=== PATIENT | male | born 1955 | race African-American/Black ===

== ENCOUNTER 2018-04-06 10:25 | Observation (INO) | payer OTHER ==
[2018-04-06] MEDS ORDERED: Nitroglycerin TAB 0.4 MG* 0.4 MG TAB ONE (14:16)
[2018-04-06 15:48] LABS: Hematocrit 46 % (42-52); Hemoglobin 15.5 g/dl (14.0-18.0); Mean Corpuscular HGB Conc 34 g/dl (31-36); Mean Corpuscular Hemoglobin 32 pg (27-31); Mean Corpuscular Volume 96 fL (80-94); Mean Platelet Volume 9.9 um3 (7.4-10.4); Platelet Count 143 10^3/ul (150-450); Red Blood Count 4.82 10^6/ul (4.00-5.40); Red Cell Distribution Width 13 % (10.5-15)
[2018-04-06 15:57] LABS: EGFR Non-African American 103.3 (>60)
[2018-04-06 16:02] LABS: INR 0.95 (0.77-1.02)
[2018-04-06 16:24] LABS: ABS Basophils 0 10^3/ul (0-0.2); ABS Eosinophils 0.1 10^3/ul (0-0.6); ABS Lymphocytes 1.3 10^3/ul (1.0-4.8); ABS Monocytes 0.6 10^3/ul (0-0.8); ABS Nucleated RBC 0 10^3/ul; Eosinophil % 0.6 % (0-6); Lymphocyte % 16.7 % (25-47); Nucleated Red Blood Cells % 0.1
[2018-04-06] MEDS ORDERED: NS 0.9% 500 ML* 500 ML IV ONE (16:33)
--- NOTE | 2018-04-06 16:40 | ED ---
Palpitations / Dysrhythmia - HPI Summary HPI Summary: This patient is a 62 year old M presenting to [facility] accompanied by his with a chief complaint of afib since 09 this morning. The patient rates the pain 1/10 in severity. Patient reports THORNE, palpitations, light headedness, and chest pressure. Patient denies LE pain and edema. Pt took 81 mg ASA this morning. States he can feel when he goes into afib and believes he is it currently. He reports that his last stress test was three years ago. Hx of HTN and afib - History of Current Complaint Chief Complaint: EDDysrhythmPalp Time Seen by Provider: 04/06/18 15:42 Hx Obtained From: Patient Onset/Duration: Lasting Hours, Still Present Timing: Constant Severity Initially: Moderate Severity Currently: Moderate Character: Irregular Associated Signs & Symptoms: Lightheadedness, Chest Pain - pressure Related History: Similar Episode/Dx as - afib - Allergy/Home Medications Allergies/Adverse Reactions: Allergies Allergy/AdvReac Type Severity Reaction Status Date / Time No Known Allergies Allergy Verified 04/06/18 10:30 PMH/Surg Hx/FS Hx/Imm Hx Endocrine/Hematology History: Comment Only: Hx Anticoagulant Therapy - aspirin Cardiovascular History: Reports: Hx Atrial Fibrillation, Hx Hypercholesterolemia , Hx Hypertension Respiratory History: Reports: Hx Sleep Apnea Musculoskeletal History: Reports: Hx Orthopedic Injury - (left) knee torn cartilage Sensory History: Reports: Hx Contacts or Glasses - glasses Opthamlomology History: Reports: Hx Contacts or Glasses - glasses - Surgical History Surgery Procedure, Year, and Place: (left) knee torn cartiledge, (as a child) Infectious Disease History: No Infectious Disease History: Denies: History Other Infectious Disease, Traveled Outside the [place] in Last 30 Days - Family History Known Family History: Negative: Cardiac Disease, Respiratory Disease, Seizure Disorder, Blood Disorder - Social History Lives: With Family Alcohol Use: Rare Substance Use Type: Reports: None Smoking Status (MU): Never Smoked Tobacco Review of Systems Negative: Fever, Chills Negative: Erythema Negative: Sore Throat Positive: Palpitations - described as afib , Chest Pain Positive: Shortness Of Breath - THORNE , Other. Negative: Cough Negative: Abdominal Pain, Vomiting, Nausea Negative: dysuria, hematuria Negative: Myalgia, Edema Neurological: Negative - dizziness , Other - light headedness All Other Systems Reviewed And Are Negative: Yes Physical Exam - Summary Physical Exam Summary: Constitutional: Well-developed, Well-nourished, Alert. (-) Distressed Skin: Warm, Dry HENT: Normocephalic; Atraumatic Eyes: Conjunctiva normal Neck: Musculoskeletal ROM normal neck. (-) JVD, (-) Stridor, (-) Tracheal deviation Cardio: irregular irregular rhythm, rate normal, Heart sounds normal; Intact distal pulses; The pedal pulses are 2+ and symmetric. Radial pulses are 2+ and symmetric. (-) Murmur Pulmonary/Chest wall: Effort normal. (-) Respiratory distress, (-) Wheezes, (-) Rales Abd: Soft, (-) epigastric tenderness, (-) Distension, (-) Guarding, (-) Rebound Musculoskeletal: (-) Edema Lymph: (-) Cervical adenopathy Neuro: Alert, Oriented x3 Psych: Mood and affect Normal Triage Information Reviewed: Yes Vital Signs On Initial Exam: Initial Vitals Temp Pulse Resp BP Pulse Ox 97.6 F 65 16 114/64 97 04/06/18 10:26 04/06/18 10:26 04/06/18 10:26 04/06/18 10:26 04/06/18 10:26 Vital Signs Reviewed: Yes Diagnostics - Vital Signs Vital Signs Temp Pulse Resp BP Pulse Ox 04/06/18 16:22 80 20 87/69 96 04/06/18 16:03 70 23 96/64 96 04/06/18 16:00 69 22 96 04/06/18 15:52 71 23 80/50 96 04/06/18 15:29 73 16 103/68 94 04/06/18 15:22 61 23 82/65 95 04/06/18 15:00 74 22 93 04/06/18 14:52 77 19 93/61 94 04/06/18 14:21 78 21 110/79 96 04/06/18 14:00 77 18 96 04/06/18 13:22 81 16 113/76 98 04/06/18 13:00 69 17 95 04/06/18 12:52 76 20 117/80 89 04/06/18 12:26 76 25 114/78 96 04/06/18 12:20 80 96 04/06/18 10:26 97.6 F 65 16 114/64 97 - Laboratory Lab Results: Lab Results 04/06/18 04/06/18 04/06/18 Range/Units 15:00 15:00 15:00 WBC 8.0 (3.5-10.8) 10^3/ul RBC 4.82 (4.00-5.40) 10^6/ul Hgb 15.5 (14.0-18.0) g/dl Hct 46 (42-52) % MCV 96 H (80-94) fL MCH 32 H (27-31) pg MCHC 34 (31-36) g/dl RDW 13 (10.5-15) % Plt Count 143 L (150-450) 10^3/ul MPV 9.9 (7.4-10.4) um3 Neut % (Auto) 74.6 (38-83) % Lymph % (Auto) 16.7 L (25-47) % Garza % (Auto) 7.7 H (0-7) % Eos % (Auto) 0.6 (0-6) % Baso % (Auto) 0.4 (0-2) % Absolute Neuts (auto) 6.0 (1.5-7.7) 10^3/ul Absolute Lymphs (auto) 1.3 (1.0-4.8) 10^3/ul Absolute Monos (auto) 0.6 (0-0.8) 10^3/ul Absolute Eos (auto) 0.1 (0-0.6) 10^3/ul Absolute Basos (auto) 0 (0-0.2) 10^3/ul Absolute Nucleated RBC 0 10^3/ul Nucleated RBC % 0.1 Sodium 140 (135-145) mmol/L Potassium 4.0 (3.5-5.0) mmol/L Chloride 108 (101-111) mmol/L Carbon Dioxide 25 (22-32) mmol/L Anion Gap 7 (2-11) mmol/L BUN 13 (6-24) mg/dL Creatinine 0.76 (0.67-1.17) mg/dL Est GFR ( Amer) 124.9 (>60) Est GFR (Non-Af Amer) 103.3 (>60) BUN/Creatinine Ratio 17.1 (8-20) Glucose 99 (70-100) mg/dL Calcium 9.4 (8.6-10.3) mg/dL Total Bilirubin 1.20 H (0.2-1.0) mg/dL AST 17 (13-39) U/L ALT 21 (7-52) U/L Alkaline Phosphatase 45 (34-104) U/L Troponin I 0.00 (<0.04) ng/mL B-Natriuretic Peptide 42 ( - 100) pg/mL Total Protein 6.8 (6.4-8.9) g/dL Albumin 4.1 (3.2-5.2) g/dL Globulin 2.7 (2-4) g/dL Albumin/Globulin Ratio 1.5 (1-3) Result Diagrams: 04/06/18 15:00 04/06/18 15:00 Lab Statement: Any lab studies that have been ordered have been reviewed, and results considered in the medical decision making process. Course/Dx - Course Assessment/Plan: this patient is a 62 year old M presenting to [facility] accompanied by his with a chief complaint of afib since 0910 this morning. The patient rates the pain 1/10 in severity. Patient reports THORNE, palpitations, light headedness, and chest pressure. Patient denies LE pain and edema. Pt took 81 mg ASA this morning. States he can feel when he goes into afib and believes he is it currently. He reports that his last stress test was three years ago. Hx of HTN and afib. An EKG reveals 83 BPM afib no stemi. Blood work obtained. The patients chest pain resolved with nitro. We discussed patient care with Dr. Cueto and he accepted the patient for admission. Patient will admitted. The patient is agreeable with this plan. - Diagnoses Provider Diagnoses: Chest pain, unspecified, Afib - Physician Notifications Discussed Care Of Patient With: Rajinder Cueto Time Discussed With Above Provider: 18:00 Instructed by Provider To: Admit As Inpatient Discharge - Sign-Out/Discharge Documenting (check all that apply): Patient Departure - admitted - Discharge Plan Condition: Fair Disposition: ADMITTED TO [facility] Referrals: Jose L Irwin MD [Primary Care Provider] - - Attestation Statements Document Initiated by Scribe: Yes Documenting Scribe: Arthur Virk Provider For Whom Scribe is Documenting (Include Credential): Guerrero Easton MD Scribe Attestation: IArthur , scribed for Guerrero Easton MD on 04/06/18 at 1830.
[2018-04-06] MEDS ORDERED: Albuterol 2.5 MG/3 ML NEB.SOL* (0.083%) INH PRN (17:27)
[2018-04-06] MEDS ORDERED: Acetaminophen TAB* 325 MG PO PRN (17:27)
[2018-04-06] MEDS ORDERED: Ondansetron INJ* 2 MG/ML VIAL IV PRN (17:27)
[2018-04-06] MEDS ORDERED: Al Hydrox/Mg Hydrox/Simet LIQ* 30 ML UDC PO PRN (17:27)
[2018-04-06] MEDS ORDERED: NS 0.9% 1000 ML* 1,000 ML IV SCH (17:30)
[2018-04-06] MEDS ORDERED: Finasteride TAB* 5 MG PO SCH (21:00)
[2018-04-06] MEDS ORDERED: Metoprolol Succinate XL TAB* 50 MG PO SCH (21:00)
[2018-04-06] MEDS: Tamsulosin CAP* 0.4 MG PO SCH (21:06)
[2018-04-06] MEDS: Apixaban* 5 MG TAB PO SCH (21:43)
[2018-04-06] MEDS ORDERED: Heparin VIAL(*) 5000 UNITS/ML VIAL (FIVE THOUSAND) SUBCUT SCH (22:00)
--- NOTE | 2018-04-06 22:39 | HP ---
CC: Dr. Jose L Irwin; Dr. Ogden * ADMISSION HISTORY AND PHYSICAL: DATE OF ADMISSION: 04/06/18 PATIENT OF ATTENDING HOSPITALIST: Dr. Rajinder Cueto.* (DICTATED BY ASHWIN MASON) PRIMARY CARE PHYSICIAN: Dr. Jose L Irwin. CHIEF COMPLAINT: Chest tightness, palpitation, and lightheadedness. HISTORY OF PRESENT ILLNESS: Mr. Hathaway is a 62-year-old gentleman with past medical history significant for chronic atrial fibrillation for which he had prior cardioversion who presented to the emergency room today with complaints of feeling some chest palpitation, chest tightness, lightheadedness as well as mild shortness of breath. The patient has prior admission with similar history in the past. He had seen Dr. Ogden regarding his atrial fibrillation and has been anticoagulated in the past using Xarelto, but currently on no anticoagulation medicine. He reports being in his usual state of health and this morning he had a gradual onset of intermittent palpitation, chest tightness with associated lightheadedness and mild shortness of breath. He denied any significant substernal chest pain, syncope, diaphoresis, nausea, or vomiting. He has been seen before in the hospital and had 2 occasions of RENETTA cardioversion, most recently 2 years ago. He was evaluated in the emergency room and had laboratory workup that revealed normal CBC and normal chemistry panel. His D-dimer was negative with value of 210. He denies any history of DVT or PE in the past. His EKG was repeated and compared to his records revealing atrial fibrillation with ventricular response ranging between 65 and 70. Given his ongoing symptoms, we were asked to see the patient for further evaluation and to consider admission to telemetry and cardiac consultation regarding possible cardioversion in the next day or 2. PAST MEDICAL HISTORY: As mentioned above significant for: 1. Essential hypertension. 2. Morbid obesity. 3. Obstructive sleep apnea. 4. Impaired fasting glycemia. 5. Hyperlipidemia. 6. Benign prostatic hyperplasia. 7. Atrial fibrillation. PAST SURGICAL HISTORY: Significant for right knee surgery for repair of cartilage tear. CURRENT MEDICATIONS: His medications at home include: 1. Aspirin 81 mg p.o. daily. 2. Digoxin 0.125 mg p.o. every other day alternating with digoxin 0.25 mg p.o. every other day. 3. Proscar 5 mg p.o. q.h.s. 4. Metoprolol succinate 50 mg p.o. q.h.s. 5. Aldactone 12.5 mg p.o. daily. 6. Flomax 0.4 mg p.o. b.i.d. ALLERGIES: He has no known drug allergies. FAMILY HISTORY: Significant for lung cancer in his father and diabetes in his mother. SOCIAL HISTORY: The patient is . He lives with family. He works as a musician. He has never smoked and he consumes alcohol occasionally. His lists his as the healthcare proxy carrier and he wishes to be a full code. REVIEW OF SYSTEMS: See HPI. Otherwise, 12 points review of systems were examined and they were essentially negative. PHYSICAL EXAMINATION GENERAL: He is a pleasant, upper middle-aged gentleman, obese, appears comfortable and in no acute distress or discomfort at the time of admission. VITAL SIGNS: Vitals revealed temperature of 97.6, pulse of 77, blood pressure of 111/81, respirations of 14 with O2 sat of 96% on room air. HEENT: Head is normocephalic, atraumatic. Sclerae are anicteric. PERRLA. EOMs intact. Oropharynx is pink and moist. NECK: Supple. Trachea midline. No cervical adenopathy, thyromegaly or JVD. LUNGS: Clear to auscultation bilaterally. HEART: Regular rate and rhythm. Normal S1 and S2 without rubs, murmurs, or gallops. BACK: With normal curvature. No CVA tenderness. ABDOMEN: Soft, nontender, and nondistended. There are no hernias, masses, or hepatosplenomegaly. RECTAL: Exam deferred at this time. EXTREMITIES: Without cyanosis, clubbing or edema. NEUROLOGIC: He is awake, alert, and oriented x4. Tongue is midline. Handgrip is equal bilaterally and sensation is intact throughout. LABORATORY WORKUP: CBC with white count of 8,000, hemoglobin 15.5, hematocrit 46, and platelets of 143. Chemistry panel with sodium of 140, potassium 4.0, chloride 108, CO2 25, BUN of 13, and creatinine of 0.7. His LFTs within normal limits and troponin was 0. BNP is 42. D-dimer was 210. INR is 0.95. ACCESSORY DIAGNOSTIC DATA: EKG again showed evidence of atrial fibrillation, unchanged compared to prior records and no evidence of ST changes. IMPRESSION: A 62-year-old gentleman with known history of paroxysmal atrial fibrillation, hypertension, and morbid obesity who presented to the emergency room with palpitation, chest tightness, and intermittent shortness of breath and will be admitted to telemetry unit for observation under hospitalist service for the following. ASSESSMENT AND PLAN: 1. Paroxysmal atrial fibrillation. The patient appears to be rate controlled at the time of admission. I will continue his digoxin at home dose alternating between 0.125 and 0.25 mg every other day. I had discussed the case with Dr. Ogden who is willing to see the patient tomorrow and recommended to keep him n.p.o. after midnight if any cardioversion is needed to be done. His chest pain has eventually resolved and his troponin is flat, but I will trend his troponin while he is here and repeat his EKG in the morning as well. 2. Hypertension. We will continue his spironolactone, metoprolol per home dose. 3. Benign prostatic hypertrophy. We will continue his Flomax at 0.4 mg once daily. 4. Morbid obesity. Supportive care. 5. Obstructive sleep apnea. The patient has been noncompliant with his CPAP in the past. I will review with him if he has been using it at home and will continue to use it to ensure adequate oxygenation at night. 6. Deep vein thrombosis prophylaxis. He is a high risk and will be covered with subcu heparin every 8 hours. 7. He wishes to be a full code. 8. Disposition. Admit to telemetry for observation, possible cardioversion in the morning and cardiac consultation. TIME SPENT: Approximately 60 minutes were spent admitting this patient for which greater than 50% on taking history and performing physical exam. I went on and discussed the case with my attending, who agreed to plan of care. ASHWIN MASON [id number]/CPS #: [id number] VANI
[2018-04-07 06:32] LABS: ABS Basophils 0 10^3/ul (0-0.2); ABS Eosinophils 0.1 10^3/ul (0-0.6); ABS Lymphocytes 1.4 10^3/ul (1.0-4.8); ABS Monocytes 0.6 10^3/ul (0-0.8); ABS Neutrophils 4.9 10^3/ul (1.5-7.7); ABS Nucleated RBC 0 10^3/ul; Eosinophil % 0.8 % (0-6); Hematocrit 46 % (42-52); Hemoglobin 15.3 g/dl (14.0-18.0); Lymphocyte % 20.5 % (25-47); Mean Corpuscular HGB Conc 34 g/dl (31-36); Mean Corpuscular Hemoglobin 32 pg (27-31); Mean Corpuscular Volume 96 fL (80-94); Mean Platelet Volume 10.3 um3 (7.4-10.4); Nucleated Red Blood Cells % 0; Platelet Count 134 10^3/ul (150-450); Red Blood Count 4.77 10^6/ul (4.00-5.40); Red Cell Distribution Width 14 % (10.5-15)
[2018-04-07 06:47] LABS: EGFR Non-African American 89.5 (>60)
--- NOTE | 2018-04-07 08:30 | PN ---
Subjective Date of Service: 04/07/18 Interval History: Mr. Hathaway denies complaint post RENETTA with cardioversion and is eager for discharge to home. Objective Active Medications: Acetaminophen (Tylenol Tab*) 975 mg PO Q4H PRN Al Hydrox/Mg Hydrox/Simethicone (Maalox Plus*) 30 ml PO Q6H PRN Albuterol (Ventolin 2.5 Mg/3 Ml Neb.Nya*) 2.5 mg INH [id number] AWAKE PRN Apixaban (Eliquis*) 5 mg PO BID CHRIS Aspirin (Aspirin Ec Tab*) 81 mg PO DAILY CHRIS Digoxin (Lanoxin Tab*) 0.125 mg PO EVERY OTHER DAY CHRIS Digoxin (Lanoxin Tab*) 0.25 mg PO EVERY OTHER DAY CHRIS Finasteride (Proscar Tab*) 5 mg PO BEDTIME CHRIS Metoprolol Succinate (Toprol Xl Tab*) 50 mg PO BEDTIME CHRIS Ondansetron HCl (Zofran Inj*) 4 mg IV Q4H PRN Spironolactone (Aldactone Tab*) 12.5 mg PO DAILY CHRIS Tamsulosin HCl (Flomax Cap*) 0.4 mg PO BID CHRIS Vital Signs: Temp Pulse Resp BP Pulse Ox 97.4 F 73 18 81/42 93 04/07/18 03:40 04/07/18 03:40 04/07/18 03:40 04/07/18 03:40 04/07/18 03:40 Oxygen Devices in Use Now: None Appearance: Male lying in bed in NAD Eyes: No Scleral Icterus Ears/Nose/Mouth/Throat: Mucous Membranes Moist Neck: Trachea Midline Respiratory: Symmetrical Chest Expansion and Respiratory Effort, Clear to Auscultation Cardiovascular: NL Sounds; No Murmurs; No JVD, No Edema Abdominal: NL Sounds; No Tenderness; No Distention Lymphatic: No Cervical Adenopathy Extremities: No Edema Skin: No Rash or Ulcers Neurological: Alert and Oriented x 3, NL Muscle Strength and Tone Nutrition: Taking PO's Result Diagrams: 04/07/18 05:49 04/07/18 05:49 Additional Lab and Data: . Assess/Plan/Problems-Billing Assessment: Mr. Hathaway is a 62 yo M with a PMH of paroxysmal afib with hx of cardioversions who was admitted on 04/06/18 with afib, symptomatic but bradycardic. - Patient Problems (1) Afib Comment: - Remains in afib with HR 40-70s, SBP 80s. - Plan for RENETTA cardioversion with Dr. Ogden, successful adventism of sinus rhythm.. - Continue digoxin, metoprolol and spironolactone. - Dr. Ogden recommends long-term anticoagulation with apixiban. (2) Hypertension Comment: - SBP 100s. - Resume home meds. (3) DVT prophylaxis Comment: - Apixiban. (4) Full code status Comment: Status and Disposition: OBV. Anticipate discharge to home when medically stable.
--- NOTE | 2018-04-07 08:30 | RAD ---
Indication: Shortness of breath. 2 views of the chest including dual energy PA views are reviewed and compared to previous exam dated February 01, 2016. There is an elevated left hemidiaphragm. Left basilar atelectasis is noted. Right lung field is clear. IMPRESSION: ELEVATED LEFT HEMIDIAPHRAGM WITH LEFT BASILAR ATELECTASIS. RIGHT LUNG FIELD IS CLEAR.
[2018-04-07] MEDS: Tamsulosin CAP* 0.4 MG PO SCH (08:54)
[2018-04-07] MEDS: Apixaban* 5 MG TAB PO SCH (08:56)
[2018-04-07] MEDS ORDERED: Aspirin EC TAB* 81 MG TAB.EC PO SCH (09:00)
[2018-04-07] MEDS ORDERED: Spironolactone TAB* 25 MG PO SCH (09:00)
[2018-04-07] MEDS ORDERED: Digoxin TAB* 0.25 MG PO SCH (09:00)
[2018-04-07] MEDS ORDERED: Naloxone* 0.4 MG/ML 1 ML VIAL ONE (14:37)
[2018-04-07] MEDS ORDERED: Lidocaine 2% VISCOUS* 15 ML UDC ONE (14:37)
[2018-04-07] MEDS ORDERED: fentaNYL* 50 MCG/ML 2 ML VIAL (100 MCG VIAL) ONE (14:37)
[2018-04-07] MEDS ORDERED: Flumazenil* 0.1 MG/ML 5 ML MDV ONE (14:37)
[2018-04-07] MEDS ORDERED: Midazolam* 1 MG/ML 10 ML VIAL (10 MG) ONE (14:37)
[2018-04-07] MEDS ORDERED: Magnesium Sulfate 1 GM IV* 1 GM/100 ML BAG IV ONE (16:00)
[2018-04-07 16:47] VITALS: BP 109/65
[2018-04-07] MEDS ORDERED: Potassium Chloride LIQUID* 20 MEQ PACKET PO ONE (17:30)
--- NOTE | 2018-04-07 20:09 | TEE ---
Patient: [facility] Rec#: [id number] : 1955 Date: 04/07/2018 Age: 62y Height: 172.7 cm / 68.0 in Weight: 109.8 kg / 242.0 lbs Sex: M BSA: 2.2 Room#: 440 Admit Date#: 04/06/2018 Type: Inpatient Referring: Jessi Jones NP Performing: Hasmukh Ogden MD Reading: Hasmukh Ogden MD Property Field Inspector: Jolie Quevedo RN RDCS Nurse: Kiara Argueta RN Nurse: Priyanka Patel Transesophageal Echocardiogram Indication: Atrial fibrillation BP: 132/84 HR: 79 Rhythm: A-Fib Findings History: Atrial fibrillation, prior cardioversions, HTN. Technical Comments: The study quality is good. Left Ventricle: The left ventricular chamber size is normal. Global left ventricular wall motion and contractility are within normal limits. There is normal left ventricular systolic function. The estimated ejection fraction is 60-65%. Left Atrium: The left atrial chamber size is normal. No thrombus is visualized within the left atrium. There is no thrombus visualized in the left atrial appendage. Right Ventricle: The right ventricular chamber size and systolic function are within normal limits. Right Atrium: The right atrial cavity size is normal. There is no patent foramen ovale visualized. A patent foramen ovale is not demonstrated by color Doppler. A bubble study was performed on a prior tranesophageal echo and it was negative. A bubble study is not repeated today. Aortic Valve: The aortic valve is trileaflet. The aortic valve leaflets are mildly thickened. There is no evidence of aortic regurgitation. There is no evidence of aortic stenosis. Mitral Valve: The mitral valve leaflets appear normal. There is a trace of mitral regurgitation. There is no evidence of mitral stenosis. Tricuspid Valve: The tricuspid valve leaflets are normal. There is trace tricuspid regurgitation. There is no tricuspid stenosis. Pulmonic Valve: The pulmonic valve appears normal. There is a trace pulmonic regurgitation. Pericardium: There is no significant pericardial effusion. Aorta: There is no dilatation of the ascending aorta. There is mild dilatation of the aortic root. There is mild atherosclerotic plaque seen in the aorta. Pulmonary Artery: The main pulmonary artery appears normal. Venous: The bicaval view was obtained and appears normal. The pulmonary veins appear normal. 3 of 4 veins were visualized. RENETTA Procedures: All standard views were attempted within the limitations of patient tolerance and safety. Transgastric imaging was attempted but was limited. History and physical as well as labs were reviewed. The patient was in a fasting state. Risks and benefits of the procedure, including alternatives, were discussed and written informed consent was obtained. The patient and/or their health care representative phlebotomy services expressed understanding of the procedure, risks and benefits. Baseline and continuous monitoring of blood pressure, heart rate, pulse oximetry and heart rhythm was performed throughout the procedure. The appropriate time-out procedure was performed as per [facility] protocol. The patient was placed in the left lateral decubitus position. The patient's posterior pharynx was anesthetized with 20ml of 2% viscous lidocaine. The patient received IV Midazolam with a total dose of 8 mg. The patient received IV Fentanyl with a total dose of 50 mcg. An oral bite block was inserted for protection of oral dentition. The multiplane transesophageal echocardiogram probe was inserted through the posterior oropharynx and advanced into the esophagus without difficulty. Multiple 2D images were obtained of the heart and its related structures. Color flow Doppler was used for evaluation. Spectral Doppler was also used. The atrial septum was interrogated with color flow Doppler. At the conclusion of the procedure the probe was removed with continuous suction without complications. The patient tolerated the procedure with no apparent complications. Conclusions The estimated ejection fraction is 60-65%. No thrombus is visualized within the left atrium. There is no thrombus visualized in the left atrial appendage. The aortic valve leaflets are mildly thickened. There is a trace of mitral regurgitation. There is trace tricuspid regurgitation. There is mild dilatation of the aortic root. There is mild atherosclerotic plaque seen in the aorta. Similar to 02/2013 except that the MR was mild then and there was trace AI. Measurements Name Value Normal Range Aortic Annulus 2.3 cm (1.4 - 2.6) Ao root diameter (2D) 3.8 cm (2.1 - 3.5) Ascending Ao 3 cm (2.1 - 3.4)
--- NOTE | 2018-04-07 23:15 | CONS ---
CC: Dr. Hasmukh Ogden; Dr. Irwin CARDIOLOGY CONSULTATION: DATE OF CONSULT: PATIENT OF: Dr. Hasmukh Ogden and Dr. Irwin. HISTORY OF PRESENT ILLNESS: This is very pleasant 62-year-old gentleman who has a history of paroxys mal atrial fibrillation dating back to his 20s who also has a history of hypertension, hyperlipidemia , sleep apnea, and obesity. He was in his usual state of jovanny until 09:10 a.m. yesterday, he develo ped sensation of lightheadedness, fatigue, and dyspnea typical of his AFib symptoms. He denied any c hest pains. Because of the symptoms, he called the office and was sent to the ER for evaluation. He was found to be in AFib with controlled ventricular response. He had low heart rate in the 40s and 5 0s overnight while asleep, which was asymptomatic, but is typically in the 60s and 70s at rest during the day. He denies any change in his constitutional symptoms. He has not had any caffeine or alcoh ol. He did start eating kimchi about 2 weeks and had some frequent bowel sounds associated with that . He denies any fevers, chills, sweats, orthopnea, peripheral edema. He does not exercise regularly , but is able to go for a short walk and stands on his feet all day at work at [employer]. 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 He has acquired thrombocytopenia. PAST MEDICAL HISTORY: Includes benign prostatic hypertrophy, hypertension, paroxysmal atrial fibrill ation since his 20s with multiple cardioversions, sleep apnea on CPAP, obesity. PAST SURGICAL HISTORY: He denies any surgeries. MEDICATIONS: Include: 1. Metoprolol succinate ER 50 mg once a day. 2. Tamsulosin 0.4 mg 2 tablets every day. 3. Digoxin 0.125 mg alternating with 2 tablets a day. 4. Tamsulosin 0.4 mg twice a day. 5. Spironolactone 12.5 mg a day. As an inpatient, he was started on Eliquis 5 mg b.i.d. ALLERGIES: He denies any allergies. FAMILY HISTORY: He has 2 sisters and a brother who are alive and well. SOCIAL HISTORY: He is , accompanied by his , [place]. 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 REVIEW OF SYSTEMS: Review of systems x10 was negative, except as above. PHYSICAL EXAMINATION: He is a well-developed, well-nourished, obese gentleman, in no apparent distre ss. Blood pressure 96/66 at noon with a heart rate of 60 and irregular, O2 sat 96% on room air. Atr aumatic, normocephalic. Extraocular muscles intact. Sclerae anicteric. Cardiac Exam: S1, S2, irre gular. No murmurs, gallops, or rubs. Chest was clear. No CVAT. Abdomen: Obese. Bowel sounds pre sent. Nontender. No hepatosplenomegaly. Femoral pulses intact without bruits. Distal pulse is inta ct with no edema. Motor strength 5/5 bilaterally. Deep tendon reflex is 2/4. Alert and oriented x3 . No edema. DIAGNOSTIC STUDIES/LABORATORY DATA: MCV elevated at 96, hematocrit of 46, platelet count of 134. D- dimer of 210. Potassium of 3.7 today, BUN of 13, creatinine of 0.86, magnesium of 1.8. Troponin 0.0 0 and 0.01. BNP normal at 42 and dig level is 1.3 today. EKG, 04/06/18, today revealed atrial fibrillation with controlled ventricular response and rSr patter n in V1. EKG from this morning at 07:38 revealed AFib with a slow ventricular response. EKG at 11:2 6 revealed AFib with a slow ventricular response in the 50s and right bundle-branch block as before. An EKG after cardioversion revealed a sinus rhythm with a right bundle-branch block. IMPRESSION: My impression is that Mr. Hathaway has a history of paroxysmal atrial fibrillation, sleep apnea, hypertension, obesity and now has a recurrent episode of atrial fibrillation after having 2 w eeks of GI upset possibly related to change in diet. We reviewed the risks and benefits of his situation, options of treatment. Given his symptoms despit e rate control, I do recommend an attempted cardioversion. Informed consent was obtained. He underwe nt a RENETTA-guided cardioversion. See separate report. In brief, the RENETTA revealed normal LV function, trace MR, and no evidence of intracardiac thrombus. He did have some mild atherosclerotic thickening of the aorta. PLAN: As follows: 1. He understands his options for treatment include continuing with periodic cardioversions as neede d or antiarrhythmic therapy or referral for EP study and ablation. 2. Given his relatively frequent symptoms and the possible relation to his GI discomfort, he would l may to continue with medications therapy at this point in time. 3. We will replace his magnesium and supplement his potassium. 4. He is to try to reduce his weight and exercise regularly. 5. Given he is approaching age 63 and has a history of hypertension, he will have a ZENOBIA score of 2 as of July. At this point, I do recommend anticoagulation agent chronically. He will begin Eliqu is and continue 5 mg twice a day. 6. He is to follow up in our office in 1 to 2 months time or sooner if symptoms develop. [id number]/[facility] #: [id number]
--- NOTE | 2018-04-08 02:48 | CARD ---
CARDIOLOGY PROCEDURE NOTE: DATE OF PROCEDURE: PROCEDURE: Cardioversion. INDICATIONS: This is a very pleasant 62-year-old gentleman with a longstanding history of paroxysma l atrial fibrillation. He was in his usual state of health until yesterday at 9:10 in the morning wh en he felt a little lightheaded and was aware of his typical AFib symptoms. He was also short of avinash ath at rest and with exertion. He denied any chest pain. He came to the emergency room and was foun d to be in AFib with a controlled ventricular response and he was started on anticoagulation. He rem ained in AFib. It was controlled with slow ventricular response overnight. Informed consent was obt ained. The patient was in a fasting state. A RENETTA was performed prior to the cardioversion to exclud e intracardiac thrombus. It revealed no evidence of left atrial or left atrial appendage thrombus. He had normal LV function. He received 8 mg of Versed and 50 mcg of fentanyl for the RENETTA portion. A single synchronized biphasic shock was then applied with successful conversion from AFib to sinus rh yt. 120 joules were applied. The findings were discussed with his at the patient's request. IMPRESSION: Successful conversion from atrial fibrillation to sinus rhythm. We will continue to monitor for recovery from monitored sedation. We will replace his magnesium, whi ch was mildly decreased at 1.8. We will supplement his potassium. Further recommendations depend on his clinical course. [id number]/[facility] #: [id number]
[2018-04-08] MEDS ORDERED: Digoxin TAB* 0.125 MG PO SCH (09:00)
--- NOTE | 2018-04-08 11:53 | DS ---
CC: Dr. Irwin; Dr. Ogden * HOSPITAL MEDICINE DISCHARGE SUMMARY: DATE OF ADMISSION: 04/06/18 DATE OF DISCHARGE: 04/07/18 PRIMARY CARE PHYSICIAN: Dr. Irwin. SWITCHBOARD INSPECTOR: Dr. Ogden. ATTENDING PHYSICIAN: Dr. Anthony Broussard * (dictation provided by Jessi Jones NP). PRIMARY DIAGNOSIS: Symptomatic atrial fibrillation, status post transesophageal echocardiogram and cardioversion with holiness of sinus rhythm. SECONDARY DIAGNOSES: 1. Essential hypertension. 2. Morbid obesity. 3. Sleep apnea. 4. Impaired fasting glycemia. 5. Hyperlipidemia. 6. Benign prostatic hypertrophy. 7. Atrial fibrillation. MEDICATIONS AT THE TIME OF DISCHARGE: 1. Metoprolol succinate 50 mg p.o. bedtime. 2. Finasteride 5 mg p.o. bedtime. 3. Digoxin 0.25 alternating with 0.125 mg p.o. every other day. 4. Aspirin 81 mg p.o. daily. 5. Tamsulosin 0.4 mg p.o. b.i.d. 6. Spironolactone 12.5 mg p.o. daily. 7. Apixaban 5 mg p.o. b.i.d. HOSPITAL COURSE: Mr. Hathaway is a 62-year-old male with past medical history as outline above, who presented to the emergency room on 04/06/18 with concern that he was in atrial fibrillation. Please see the dictated H and P from [facility] for complete details. In brief, the patient states that he has similar sensations in the past when he was in AFib with the symptoms of palpitations, tightness, and lightheadedness as well as mild shortness of breath. In the emergency room, the patient was confirmed to be in atrial fibrillation, though he was not tachycardic. His workup included a chest x-ray, which showed "elevated left hemidiaphragm with left basilar atelectasis, right lung field is clear." The patient had labs, which showed a normal white blood cell count. He has no anemia. His potassium was 4.0. Magnesium level was 1.8 and this was repleted. Mr. Hathaway was seen in consultation by Dr. Ogden from the Cardiology team. I refer you to his notations for complete details. In brief, he recommended that the patient needed transesophageal echocardiogram with cardioversion, this was performed today and the patient had successful holiness of sinus rhythm and he is remained in sinus rhythm through the afternoon. He states he is feeling better and is eager for discharge to home. I have spoken with Dr. Ogden directly and he states that the patient should continue on his routine medications including digoxin, metoprolol, and spironolactone. The patient should also start Eliquis, which he will be taking long-term now for anticoagulation for stroke prevention with AFib. The patient is to follow up with Dr. Irwin and Dr. Ogden. DISPOSITION: To home. DIET: Low-fat, low-salt. No caffeine. ACTIVITY: As tolerated. FOLLOWUP PLANS: 1. Please follow up with Dr. Irwin the next week. Please note, the patient's blood pressure was running systolically a bit lower than his normal, approximately 100 systolically and that I have asked the patient to monitor his blood pressure at home and to provide those readings to Dr. Irwin. The patient has also been instructed to hold his blood pressure medications if he symptomatic with blood pressures less than 100 systolically. 2. Follow up with Dr. Ogden next month. TIME SPENT: Approximately 60 minutes were spent on the discharge of this patient, more than half time spent with the patient at the bedside reviewing the events leading up to this hospitalization, performing the physical examination, reviewing my plan of care. JESSI JONES NP [id number]/[facility] #: [id number] VANI
== END 2018-04-07 18:44 | disposition home or self-care (01) ==
LOC: ED 10:25 → MEDTELE 17:27
PROVIDERS: ADMIT Internal Medicine; ATTEND Internal Medicine
DX: I48.0 Paroxysmal atrial fibrillation (principal); I10 Essential (primary) hypertension; E66.01 Morbid (severe) obesity due to excess calories; G47.30 Sleep apnea, unspecified; R73.01 Impaired fasting glucose; E78.5 Hyperlipidemia, unspecified; N40.0 Benign prostatic hyperplasia without lower urinary tract symptoms; Z79.899 Other long term (current) drug therapy; Z79.01 Long term (current) use of anticoagulants; I45.10 Unspecified right bundle-branch block; R06.02 Shortness of breath
CPT/HCPCS: 36415; 71046; 80048; 80053; 80162; 83735; 83880; 84484; 85025; 85379; 85610; 85730; 93005; 93312; 93325; 96365; 96366; 99156; 99157; 99284; A9270-GY; G0378; J2250; J2310; J3010; J3475